=== PATIENT | male | born 1955 | race African-American/Black ===

== ENCOUNTER 2017-01-26 23:28 | Emergency (ER) | payer OTHER ==
[~2017-01-26] VITALS: Ht 185.4 cm; Wt 102.1 kg
[~2017-01-26 23:28] MED LIST: ALLOPURINOL 30300 M1; BYSTOLIC 5 MG5 M1; BYSTOLIC10 MG; CIPRO500 MG PO; CIPROFLOXACIN500 M1 PO; COLACE100 MG PO; COZAAR 25 MG TA25 M1; DILANTIN100 MG PO; FLAGYL500 MG PO; FLEXERIL PO; IBUPROFEN 800800 M1 PO; INDOMETHACIN 5050 M1; LISINOPRIL10 MG PO; MEDROLDOSEPACK PO; NEXIUM40 MG; NORCO 5-325 TA1 EACH PO; OCEAN45 ML NS; PERCOCET 5-3251 EACH PO; PERCOCET PO; PHENERGAN 25 MG25 M1 PO; PREDNISONE 20 M20 M1 PO; PREDNISONE50 MG PO; PROAIR HFA8.5 GM; PROBIOTIC1 EAC1 PO; TESSALON PERLE100 MG PO; TRAMADOL 50 MG50 MG PO; ULTRAM 50MG TAB50 MG PO; VALIUM2 MG PO; ZOFRAN ODT4 M1 PO; ZPAK PO
[2017-01-26] MEDS ORDERED: COZAAR 25 MG TA25 M1 PO (23:37)
== END 2017-01-27 00:30 | disposition home or self-care (01) ==
LOC: ER 23:28
DX: J06.9 Acute upper respiratory infection, unspecified (principal); I10 Essential (primary) hypertension; Z87.442 Personal history of urinary calculi; Z86.011 Personal history of benign neoplasm of the brain; Z88.6 Allergy status to analgesic agent

== ENCOUNTER 2017-11-16 00:48 | Emergency (ER) | payer OTHER ==
[~2017-11-16] VITALS: Ht 185.4 cm; Wt 100.7 kg
[~2017-11-16 00:48] MED LIST changes: +COZAAR 25 MG TA25 M1 PO
[2017-11-16] MEDS ORDERED: BUTALB-APAP-CA1 EACH PO (02:19)
== END 2017-11-16 02:48 | disposition home or self-care (01) ==
LOC: ER 00:48
DX: R51 Headache (principal); I10 Essential (primary) hypertension; Z88.6 Allergy status to analgesic agent

== ENCOUNTER 2018-09-05 17:22 | Emergency (ER) | payer OTHER ==
[~2018-09-05] VITALS: Ht 185.4 cm; Wt 90.7 kg
[~2018-09-05 17:22] MED LIST changes: +BUTALB-APAP-CA1 EACH PO; +CARAFATE 1 GM TA1 G1 PO
[2018-09-05 17:38] LABS: URINE BILIRUBIN NEGATIVE (Negative); URINE BLOOD 2+ (Negative); URINE CLARITY CLEAR; URINE COLOR YELLOW; URINE GLUCOSE-RANDOM* NEGATIVE (Negative); URINE KETONES NEGATIVE (Negative); URINE LEUKOCYTES-REFLEX 1+ (Negative); URINE NITRITE-REFLEX NEGATIVE (Negative); URINE PROTEIN (DIPSTICK) NEGATIVE (Negative); URINE SPECIFIC GRAVITY <= 1.005 (1.005-1.035); URINE UROBILINOGEN 0.2 E.U./dl (0.2-1.0)
[2018-09-05 17:45] LABS: CASTS None Seen /LPF (None Seen); SQUAMOUS 0-3 Few /LPF (0-3); URINE WBC-REFLEX 0-5 Rare /HPF (0-5)
[2018-09-05 17:46] LABS: BACTERIA-REFLEX None Seen /HPF (None Seen); CRYSTALS None Seen /LPF (None Seen); URINE RBC 0-2 Rare /HPF (0-2)
[2018-09-05 18:11] LABS: ABSOLUTE NEUTROPHILS 5.4 thou/uL (1.4-8.2); BASOPHILS 1.2 % (0.0-2.0); EOSINOPHILS 1.4 % (0.0-3.0); HEMATOCRIT 42.3 % (42.0-52.0); HEMOGLOBIN 14.2 gm/dL (14.0-18.0); LYMPHOCYTES 33.8 % (24.0-44.0); MCH 30.7 pg (26.0-34.0); MCHC 33.6 g/dL (28.0-37.0); MCV 91.4 fL (80.0-100.0); MONOCYTES 7.5 % (1.0-8.0); PLATELET COUNT 315 thou/uL (150-400); POLYS 56.1 % (36.0-66.0); RBC 4.63 mil/uL (4.50-6.00); RDW 13.6 % (10.5-14.5); WBC 9.6 thou/uL (4.0-11.0)
[2018-09-05 18:24] LABS: CALCIUM 9.6 mg/dL (8.5-10.1); POTASSIUM 3.9 mmol/L (3.5-5.1)
[2018-09-05 18:30] LABS: ALBUMIN 3.7 g/dL (3.4-5.0); TOTAL BILIRUBIN 0.2 mg/dL (<0.1-1.0); TOTAL PROTEIN 7.4 g/dL (6.4-8.2)
[2018-09-05] MEDS ORDERED: NORCO 10-325 T1 EACH PO (18:52)
[2018-09-05] MEDS ORDERED: BACTRIM DS TAB1 EACH PO (18:52)
[2018-09-05 18:58] VITALS: BP 140/99
== END 2018-09-05 19:00 | disposition home or self-care (01) ==
LOC: ER 17:22
PROVIDERS: Emergency Medicine; Physician Assistant
DX: N20.0 Calculus of kidney (principal); N39.0 Urinary tract infection, site not specified; I10 Essential (primary) hypertension; Z88.6 Allergy status to analgesic agent; Z87.442 Personal history of urinary calculi